=== PATIENT | male | born 1970 | race Caucasian/White ===

== ENCOUNTER 2019-06-02 10:33 | Outpatient (RCR) | payer SELFPAY | END 2019-08-31 | disposition home or self-care (01) | LOC: LAB 10:33 | DX: Z30.8 Encounter for other contraceptive management (principal) | CPT/HCPCS: 89321 ==

== ENCOUNTER → 2019-11-06 | Outpatient (CLI) | payer SELFPAY ==
--- NOTE | 2019-11-06 15:13 | Diagnostic Imaging Report ---
PROCEDURE: CT abdomen and pelvis without contrast. TECHNIQUE: Multiple contiguous axial images were obtained through the abdomen and pelvis without the use of intravenous contrast. Auto Exposure Controls were utilized during the CT exam to meet ALARA standards for radiation dose reduction. INDICATION: Left lower quadrant pain. COMPARISON: No prior studies are available for comparison. FINDINGS: The lung bases are clear. Small circumscribed low density in the dome of the right lobe of the liver is noted measuring 9 mm. A smaller low density more inferiorly in the right lobe is also noted, too small. These could represent small cysts. Gallbladder is unremarkable. No biliary ductal dilatation is seen. Pancreas and spleen are unremarkable. No adrenal mass is detected. Kidneys are without evidence of calculi or hydronephrosis. Aorta is non-aneurysmal. No central retroperitoneal or mesenteric lymphadenopathy is identified. The bowel loops are normal caliber. There is no obstruction. There is no evidence of acute diverticulitis. The bladder is decompressed. The prostate is unremarkable. No pelvic lymphadenopathy is seen. No free fluid or fluid collection is identified. The bony structures are nonacute. IMPRESSION: 1. Hepatic low densities, too small to characterize but statistically likely cysts. 2. No acute feature in the abdomen or pelvis is detected. There is no evidence of acute diverticulitis, urinary tract calculi or obstruction. Dictated by: Dictated on workstation # [id number]
== END ==
LOC: RAD 09:53
PROVIDERS: ATTEND Family Medicine
DX: K76.89 Other specified diseases of liver (principal)
CPT/HCPCS: 74176

== ENCOUNTER → 2021-01-30 | Outpatient (CLI) | payer OTHER ==
--- NOTE | 2021-01-30 16:38 | Diagnostic Imaging Report ---
PROCEDURE: US Scrotum. TECHNIQUE: Multiple real-time grayscale images were obtained over the scrotum in various projections bilaterally. INDICATION: Bilateral groin pain. There are no prior studies available for comparison. Both testicles were identified. The right testicle measures 4.2 x 2.2 x 2.7 cm while the left testicle is estimated to be 3.8 x 1.6 x 2.9 cm. There is no evidence for a solid testicular mass or for torsion. There is a 2.0 x 1.5 x 2.4 cm rounded hypoechoic lesion with fairly uniform internal echoes within the head of the epididymis on the right. I suspect that this is a small epididymal cyst which has been slightly complicated by infection and/or hemorrhage. There is no sign of acute epididymitis. The left epididymis is unremarkable. There is no significant hydrocele or varicocele formation. IMPRESSION: 1. There is no evidence for a solid testicular mass or for torsion. 2. There is a roughly 2 cm slightly complicated cyst associated with the epididymis on the right. There is no evidence for edema/inflammation of either epididymis otherwise. Dictated by: Dictated on workstation # [id number]
== END ==
LOC: RAD 14:15
PROVIDERS: ATTEND Nurse Practitioner Family
DX: N50.3 Cyst of epididymis (principal)
CPT/HCPCS: 76870

== ENCOUNTER → 2023-06-14 | Outpatient (CLI) | payer SELFPAY | LOC: LAB FS 14:13 | PROVIDERS: ATTEND Urology | DX: Z12.5 Encounter for screening for malignant neoplasm of prostate (principal); R97.20 Elevated prostate specific antigen [PSA] | CPT/HCPCS: 36415; 84153 ==

== ENCOUNTER → 2023-07-04 | Outpatient (CLI) | payer SELFPAY | LOC: LAB 11:06 | PROVIDERS: ATTEND Urology | DX: Z12.5 Encounter for screening for malignant neoplasm of prostate (principal) | CPT/HCPCS: 84153; 84154; G0103; 36415 ==